=== PATIENT | male | born 1960 | race Hispanic/Latino ===

== ENCOUNTER 2018-06-17 06:50 | Day surgery (SDC) | payer MEDICAID ==
[2018-06-12 09:47] LABS: BASOPHILS % (AUTO) 1.7 % (0.0-5.0); EOSINOPHILS % (AUTO) 4.7 % (0.0-8.0); HEMATOCRIT 38.2 % (42-54); LYMPHOCYTES % (AUTO) 22.6 % (21.0-51.0); MEAN CORPUSCULAR HEMOGLOBIN 31.4 pg (27.0-33.0); MEAN CORPUSCULAR HGB CONC 33.7 g/dL (32.0-36.0); MEAN CORPUSCULAR VOLUME 93.2 fL (79-99); MONOCYTES % (AUTO) 8.1 % (3.0-13.0); NEUTROPHILS % (AUTO) 62.9 % (40.0-77.0); NUCLEATED RED BLOOD CELLS 0.1 % (0.0-0.19); PLATELET COUNT (AUTO) 274 K/uL (130-400); RED CELL DISTRIBUTION WIDTH 15.9 % (11.0-15.5); WHITE BLOOD COUNT (AUTO) 5.1 K/uL (4.8-10.8)
[2018-06-12 09:48] VITALS: BP 131/80
[2018-06-12 09:54] LABS: CREATININE 7.5 mg/dL (0.5-1.5); POTASSIUM 4.4 mmol/L (3.5-5.1)
[~2018-06-17] VITALS: Ht 172.7 cm; Wt 89.5 kg
[2018-06-17] VITALS (12 sets, daily range): BP systolic 127–136; BP diastolic 74–84
[~2018-06-17 06:50] MED LIST: AMLO10TA7 PO; CARV12.511 PO; HYDR100T27 PO
[2018-06-17] MEDS ORDERED: MIDAZOLAM HCL 1 MG/ML 2ML VIAL ONE ×2 (07:10→08:51)
[2018-06-17] MEDS ORDERED: ONDANSETRON HCL 4 MG/2 ML VIAL ONE (07:11)
[2018-06-17] MEDS ORDERED: DEXAMETHASONE SOD PHOSPHATE 4 MG/ML 1ML VIAL ONE (07:11)
[2018-06-17] MEDS ORDERED: PHENYLEPHRINE HCL 10 MG/ML 1ML VIAL IV ONE ×2 (07:11→07:12)
[2018-06-17] MEDS ORDERED: FENTANYL CITRATE PF 50 MCG/1 ML 2ML VIAL ONE (07:11)
[2018-06-17] MEDS ORDERED: LIDOCAINE PF 2% 5ML ABBOJECT ONE (07:12)
[2018-06-17] MEDS ORDERED: PROPOFOL 10 MG/ML 20ML VIAL IV ONE (07:12)
[2018-06-17] MEDS ORDERED: ROCURONIUM 10MG/1ML SYR 10 MG/ML ML ONE (07:19)
--- NOTE | 2018-06-17 07:40 | NUR ---
POTENTIAL FOR INFECTION: SHAVED RIGHT ARM PER [facility].
[2018-06-17] MEDS: CEFAZOLIN SODIUM 1 GM VIAL IVP ONE ×2 (07:41→08:40)
[2018-06-17] MEDS ORDERED: ROPIVACAINE 0.5% 5MG/ML 30ML IJ ONE (07:59)
[2018-06-17] MEDS ORDERED: SODIUM CHLORIDE 0.9% 1000ML 1,000 ML IV SCH (08:00)
[2018-06-17] MEDS ORDERED: HEPARIN SODIUM 1000UNIT/ML 10ML VIAL ONE (09:16)
--- NOTE | 2018-06-17 10:17 | NUR ---
RT RADIAL PULSES TACTILE. Addendum: 06/17/18 at 1051 by JACKIE LEAL RN RN Amended: Links added.
--- NOTE | 2018-06-17 11:07 | NUR ---
RT CHEST TEMPORARY DIALYSIS PORT. Addendum: 06/17/18 at 1108 by JACKIE LEAL RN RN Amended: Links added.
--- NOTE | 2018-06-17 11:13 | NUR ---
PATIENT ARRIVED FROM PACU IN NO DISTRESS, RIGHT AC INCISION SHOWS NO ACTIVE BLEEDING OR HEMATOMA. RU AV FISTULA HAS + bruit,+ THRILL. PATIENT RECEIVED TEACHING ON FISTULA CARE.
--- NOTE | 2018-06-17 12:00 | NUR ---
PATIENT DISCHARGED IN NO DISTRESS OR PAIN VIA WHEELCHAIR IN HIS MOTHERS CAR.NO CP NO SOB REPORTED BY PATIENT
== END 2018-06-17 12:00 | disposition home or self-care (01) ==
LOC: DAH 06:50
PROVIDERS: ATTEND Student in an Organized Health Care Education/Training Program
DX: I12.0 Hypertensive chronic kidney disease with stage 5 chronic kidney disease or end stage renal disease (principal); N18.6 End stage renal disease; Z99.2 Dependence on renal dialysis; D64.9 Anemia, unspecified; Z79.899 Other long term (current) drug therapy; Z79.82 Long term (current) use of aspirin; Z98.890 Other specified postprocedural states; Z80.9 Family history of malignant neoplasm, unspecified
CPT/HCPCS: 36415 ×2; 36821; 64415; 80048; 84132; 85025; A4218; A4649; A4930; C1713 ×2; G0168; J0690; J1100; J1644 ×2; J2001; J2250 ×2; J2370 ×2; J2405; J2704; J2795; J3010; J7030

== ENCOUNTER → 2018-10-16 | Outpatient (CLI) | payer MEDICAID | END | disposition home or self-care (01) | LOC: RAH 11:00 | PROVIDERS: ATTEND Student in an Organized Health Care Education/Training Program | DX: R22.32 Localized swelling, mass and lump, left upper limb (principal) | CPT/HCPCS: 76882 ==